=== PATIENT | female | born 1960 | race Caucasian/White ===

== ENCOUNTER 2019-08-21 20:02 | Emergency (ER) | payer SELFPAY ==
[2019-08-21] MEDS ORDERED: Famotidine 20 MG TAB ONE (20:34)
[2019-08-21] MEDS ORDERED: diphenhydrAMINE 25 MG CAP ONE (20:34)
[2019-08-21] MEDS ORDERED: Dexamethasone 4 MG TAB ONE (20:34)
== END 2019-08-21 20:45 | disposition home health service (06) ==
LOC: ERS 20:02
DX: L50.9 Urticaria, unspecified (principal)
CPT/HCPCS: 99282; J8540; Q0163

== ENCOUNTER 2020-02-08 20:23 | Emergency (ER) | payer SELFPAY ==
--- NOTE | 2020-02-08 22:02 | RAD ---
Exam: 3 views thoracic spine HISTORY: Pain x2-3 days. FINDINGS: AP, lateral and swimmer's view demonstrate 12 thoracic type vertebra. Mild bone demineraliz ation. Mild loss of disc space height. No fractures or malalignment. IMPRESSION: No fracture.
--- NOTE | 2020-02-08 22:03 | RAD ---
Exam: Lumbar spine 3 views HISTORY: Pain FINDINGS: Diffuse bony mineralization. 5 lumbar type vertebra. 5.6 mm of anterolisthesis of L4 for up on L5. Disc space heights are preserved. Visualized sacrum and bony pelvis are intact. IMPRESSION: Grade 1 anterolisthesis of L4 upon L5. No fracture.
== END 2020-02-08 22:13 | disposition home or self-care (01) ==
LOC: ERS 20:23
DX: M54.5 Low back pain (principal); F17.210 Nicotine dependence, cigarettes, uncomplicated
CPT/HCPCS: 72072; 72100

== ENCOUNTER 2021-01-10 18:58 | Emergency (ER) | payer SELFPAY | END 2021-01-10 21:40 | disposition left against medical advice (07) | LOC: ERS 18:58 | DX: Z53.21 Procedure and treatment not carried out due to patient leaving prior to being seen by health care provider (principal) | CPT/HCPCS: 94760 ==

== ENCOUNTER 2021-01-11 16:24 | Emergency (ER) | payer SELFPAY ==
[2021-01-11 18:11] LABS: #Basophils 0.1 thou/uL (0.0-0.2); #Eosinphils 0.3 thou/uL (0.0-0.7); #Lymphocytes 3.2 thou/uL (1.20-3.40); #Monocytes 0.7 thou/uL (0.11-0.59); #Neutrophils 3.2 thou/uL (1.40-6.50); %Basophils 1.3 % (0.0-1.0); %Eosinophils 3.6 % (0.0-10.0); %Lymphocytes 43.4 % (21.0-51.0); %Monocytes 8.9 % (0.0-10.0); %Neutrophils 42.8 % (42.0-75.0); Mean Corpuscular HGB CONC 32.8 g/dL (32.0-36.0); Mean Corpuscular Hemoglobin 31.1 pg (27.0-31.0); Mean Corpuscular Volume 94.8 fL (78.0-98.0); Mean Platelet Volume 6.8 fL (7.4-10.4); Platelet Count 314 thou/uL (130-400); RBC Distribution Width 11.9 % (11.5-14.5); Red Blood Cell (RBC) Count 4.16 mill/uL (4.20-5.40); White Blood Cell (WBC) Count 7.4 thou/uL (4.8-10.8)
[2021-01-11 18:33] LABS: ALT (SGPT) 8 U/L (8-55); AST (SGOT) 11 U/L (5-34); Albumin 4.3 g/dL (3.5-5.0); Alkaline Phosphatase 97 U/L (40-110); Anion Gap 12 mmol/L (10-20); BUN (Urea Nitrogen) 12 mg/dL (9.8-20.1); Bilirubin, Total 0.2 mg/dL (0.2-1.2); Calc. Creatinine Clearance 0 mL/min (70-130); Calcium 9.5 mg/dL (7.8-10.44); Carbon Dioxide 27 mmol/L (22-29); Chloride 107 mmol/L (98-107); Globulin 2.7 g/dL (2.4-3.5); Glucose 114 mg/dL (70-105); Potassium 3.8 mmol/L (3.5-5.1); Sodium 142 mmol/L (136-145)
[2021-01-11 19:51] LABS: Bilirubin Negative (Negative); Blood, Urine Negative (Negative); Clarity Clear (Clear); Glucose, Urine (Dipstick) Normal (Negative); Ketone, Urine Negative (Negative); Leukocyte Negative Leu/uL (Negative); Nitrite Negative (Negative); Protein, Urine (Dipstick) Negative (Neg-Trace); Specific Gravity, Urine 1.009 (1.002-1.036); Urobilinogen Normal mg/dL (Less than 2); pH, Urine 6.5 (5.0-9.0)
== END 2021-01-11 20:29 | disposition home or self-care (01) ==
LOC: ERS 16:24
DX: I10 Essential (primary) hypertension (principal); R51.9 Headache, unspecified; F17.210 Nicotine dependence, cigarettes, uncomplicated
CPT/HCPCS: 36415; 70450; 80053; 81003; 84484; 85025; 93005

== ENCOUNTER 2021-03-15 14:44 | Emergency (ER) | payer SELFPAY | END 2021-03-15 15:34 | disposition home or self-care (01) | LOC: ERS 14:44 | DX: M54.32 Sciatica, left side (principal); F17.210 Nicotine dependence, cigarettes, uncomplicated | CPT/HCPCS: 99283 ==

== ENCOUNTER 2021-11-09 19:54 | Emergency (ER) | payer SELFPAY ==
[2021-11-09] MEDS ORDERED: Ketorolac Tromethamine 30 MG/ML VIAL ONE (20:54)
== END 2021-11-09 22:31 | disposition home or self-care (01) ==
LOC: ERS 19:54
DX: M70.32 Other bursitis of elbow, left elbow (principal); F17.210 Nicotine dependence, cigarettes, uncomplicated
CPT/HCPCS: 96372; J1885

== ENCOUNTER 2022-02-11 11:23 | Emergency (ER) | payer SELFPAY ==
[2022-02-11] MEDS ORDERED: Lidocaine 1% PF 5 ML VIAL ONE (14:12)
== END 2022-02-11 14:37 | disposition home or self-care (01) ==
LOC: ERS 11:23
DX: M70.22 Olecranon bursitis, left elbow (principal); F17.210 Nicotine dependence, cigarettes, uncomplicated
CPT/HCPCS: 20605

== ENCOUNTER 2022-06-09 21:32 | Emergency (ER) | payer SELFPAY ==
[2022-06-09 22:15] LABS: #Eosinphils 0.2 thou/uL (0.0-0.7); #Lymphocytes 3.2 thou/uL (1.20-3.40); #Monocytes 0.7 thou/uL (0.11-0.59); #Neutrophils 2.5 thou/uL (1.40-6.50); %Basophils 0.4 % (0.0-1.0); %Eosinophils 3.1 % (0.0-10.0); %Lymphocytes 48.3 % (21.0-51.0); %Monocytes 10.2 % (0.0-10.0); Hemoglobin 12.5 g/dL (12.0-16.0); Mean Corpuscular HGB CONC 34.1 g/dL (32.0-36.0); Mean Corpuscular Volume 93.9 fl (78.0-98.0); Mean Platelet Volume 6.5 fL (7.4-10.4); Platelet Count 446 10x3/uL (130-400); RBC Distribution Width 11.6 % (11.5-14.5); Red Blood Cell (RBC) Count 3.89 mill/uL (4.20-5.40); White Blood Cell (WBC) Count 6.7 10x3/uL (4.8-10.8)
[2022-06-09 22:39] LABS: ALT (SGPT) 7 U/L (8-55); AST (SGOT) 10 U/L (5-34); Albumin 4.3 g/dL (3.4-4.8); Alkaline Phosphatase 84 U/L (40-110); Anion Gap 12 mmol/L (10-20); BUN (Urea Nitrogen) 20 mg/dL (9.8-20.1); Bilirubin, Total 0.3 mg/dL (0.2-1.2); Calc. Creatinine Clearance 0 mL/min (70-130); Calcium 9.1 mg/dL (7.8-10.44); Carbon Dioxide 25 mmol/L (23-31); Chloride 107 mmol/L (98-107); Estimated GFR 89; Globulin 2.7 g/dL (2.4-3.5); Glucose 102 mg/dL (80-115); Lipase 26 U/L (8-78); Sodium 140 mmol/L (136-145)
[2022-06-09 23:20] LABS: Bacteria/HPF None Seen HPF (None Seen); Bilirubin Negative (Negative); Blood, Urine Negative (Negative); Clarity Clear (Clear); Glucose, Urine (Dipstick) Normal (Negative); Ketone, Urine Trace mg/dL (Negative); Leukocyte 25 Leu/uL (Negative); Nitrite Negative (Negative); Protein, Urine (Dipstick) 20 mg/dL (Neg-Trace); RBC/HPF 0-3 HPF (0-3); Specific Gravity, Urine 1.029 (1.002-1.036)
[2022-06-10] MEDS ORDERED: Lidocaine Viscous Sol 2% 15 ml UD Cup ONE (00:59)
[2022-06-10] MEDS ORDERED: Mag-Al 1200 mg/1200 mg/30 ML UDCUP ONE (00:59)
== END 2022-06-10 01:43 | disposition home or self-care (01) ==
LOC: ERS 21:32
DX: R10.13 Epigastric pain (principal); F17.200 Nicotine dependence, unspecified, uncomplicated
CPT/HCPCS: 36415; 71045; 80053; 81003; 81015; 83690; 84484; 85025; 93005

== ENCOUNTER 2022-10-21 22:16 | Emergency (ER) | payer SELFPAY | END 2022-10-21 22:58 | disposition left against medical advice (07) | LOC: ERS 22:16 | DX: Z53.21 Procedure and treatment not carried out due to patient leaving prior to being seen by health care provider (principal) ==

== ENCOUNTER 2022-10-22 07:53 | Emergency (ER) | payer SELFPAY | END 2022-10-22 09:09 | disposition home or self-care (01) | LOC: ERS 07:53 | DX: J20.9 Acute bronchitis, unspecified (principal); F17.210 Nicotine dependence, cigarettes, uncomplicated | CPT/HCPCS: 71046 ==

== ENCOUNTER 2024-01-29 10:03 | Outpatient (CLI) | payer OTHER | END 2024-01-29 10:04 | disposition home or self-care (01) | LOC: BICRAD 10:03 | PROVIDERS: ATTEND Internal Medicine | DX: Z02.71 Encounter for disability determination (principal); M47.816 Spondylosis without myelopathy or radiculopathy, lumbar region; M47.817 Spondylosis without myelopathy or radiculopathy, lumbosacral region | CPT/HCPCS: 72100 ==

== ENCOUNTER 2024-04-13 17:27 | Emergency (ER) | payer SELFPAY ==
[2024-04-13 20:02] LABS: Bacteria/HPF None Seen HPF (None Seen); Bilirubin Negative (Negative); Blood, Urine Negative (Negative); CAUTI Indications for Culture Pelvic or flank pain; Clarity Clear (Clear); Glucose, Urine (Dipstick) Normal (Negative); Ketone, Urine Negative (Negative); Leukocyte Negative Leu/uL (Negative); Nitrite Negative (Negative); Protein, Urine (Dipstick) Negative (Neg-Trace); RBC/HPF None Seen HPF (0-3); Specific Gravity, Urine 1.006 (1.002-1.036); Squamous Epithelial 0-3 HPF (0-3); Urobilinogen Normal mg/dL (Less than 2); WBC/HPF 0-3 HPF (0-3); pH, Urine 6.5 (5.0-9.0)
[2024-04-13 20:06] LABS: Urine Culture Reflex No No
== END 2024-04-13 21:20 | disposition home or self-care (01) ==
LOC: ERS 17:27
DX: J11.1 Influenza due to unidentified influenza virus with other respiratory manifestations (principal); F17.210 Nicotine dependence, cigarettes, uncomplicated
CPT/HCPCS: 71045; 81001

== ENCOUNTER 2025-04-21 11:15 | Outpatient (CLI) | payer OTHER, MEDICAID | END 2025-04-21 11:16 | disposition home or self-care (01) | LOC: BICCT 11:15 | PROVIDERS: ATTEND Family Medicine | DX: Z12.2 Encounter for screening for malignant neoplasm of respiratory organs (principal); K76.89 Other specified diseases of liver; R16.0 Hepatomegaly, not elsewhere classified; Z87.891 Personal history of nicotine dependence | CPT/HCPCS: 71271 ==